=== PATIENT | female | born 1945 ===

== ENCOUNTER 2022-06-02 11:19 | Inpatient (IN) | payer MEDICARE ==
[~2022-06-02] VITALS: Ht 160 cm; Wt 59.5 kg
[2022-06-02] MEDS ORDERED: SODIUM CHLORIDE 0.9% 100 ML ONE (11:35)
[2022-06-02] MEDS ORDERED: IOHEXOL 350 MG/ML 100 ML VIAL ONE (11:35)
[2022-06-02 11:54] LABS: BASOPHILS % (AUTO) 0.8 % (0.0-2.0); HEMATOCRIT 36.9 % (36-46); HEMOGLOBIN 12.6 g/dL (12.0-16.0); LYMPHOCYTES # (AUTO) 3.4 K/uL (1.0-4.8); LYMPHOCYTES % (AUTO) 30.7 % (22.0-44.0); MEAN CORPUSCULAR HEMOGLOBIN 30.9 pg (26.0-34.0); MEAN CORPUSCULAR HGB CONC 34.2 G/dL (31.0-37.0); MEAN CORPUSCULAR VOLUME 90 fL (80-100); MONOCYTES # (AUTO) 0.8 K/uL (0.1-1.0); MONOCYTES % (AUTO) 7.4 % (2.0-9.0); NEUTROPHILS # (AUTO) 6.6 K/uL (1.8-7.7); NEUTROPHILS % (AUTO) 60.1 % (40.0-70.0); PLATELET COUNT (AUTO) 422 K/uL (150-450); RED BLOOD CELL COUNT(AUTO) 4.08 MIL/uL (4.00-5.20); RED CELL DISTRIBUTION WIDTH 14.3 % (11.5-14.5)
[2022-06-02 12:05] LABS: ANION GAP 7 mmol/L (8-16); CALCIUM, TOTAL 9.5 mg/dL (8.8-10.5); CARBON DIOXIDE 29 mmol/L (22-29); CHLORIDE 103 mmol/L (98-107); GLOMERULAR FILTR. RATE CALC > 60 mL/min (>60); GLUCOSE,RANDOM 111 mg/dL (70-110); POTASSIUM 3.9 mmol/L (3.5-5.1); SODIUM SERUM 139 mmol/L (136-145); UREA NITROGEN, BLOOD 14 mg/dL (7-18)
[2022-06-02 12:11] LABS: ALANINE AMINOTRANSFERASE 37 U/L (12-78); ALBUMIN 2.9 g/dL (3.4-5.0); ALKALINE PHOSPHATASE 75 U/L (46-116); ASPARTATE AMINOTRANSFERASE 33 U/L (15-37); BILIRUBIN,TOTAL 0.5 mg/dL (0.1-1.0); TOTAL PROTEIN, SERUM 7.2 g/dL (6.4-8.2)
[2022-06-02 12:13] LABS: INR 1.1 (0.9-1.1); PROTHROMBIN TIME 11.5 SEC (9.4-11.6)
[2022-06-02] MEDS ORDERED: MEMA10TA11 PO (12:21)
[2022-06-02] MEDS ORDERED: PRAV20TA4 PO (12:21)
[2022-06-02] MEDS ORDERED: VALS160T2 PO (12:21)
[2022-06-02] MEDS ORDERED: LEVO100 PO (12:21)
[2022-06-02] MEDS ORDERED: MELA5TAB40 PO (12:21)
[2022-06-02] MEDS ORDERED: AMLO-257 PO (12:21)
[2022-06-02] MEDS ORDERED: ESCI-8 PO (12:21)
[2022-06-02] MEDS ORDERED: METF-81 PO (12:21)
[2022-06-02 13:01] LABS: COVID AG,FIA SOURCE NASAL SWAB
[2022-06-02 13:16] LABS: AMPHET/METH SCREEN,URINE NEGATIVE (NEGATIVE); BARBITURATE SCREEN, URINE NEGATIVE (NEGATIVE); BENZODIAZEPINES SCREEN,URINE NEGATIVE (NEGATIVE); CANNABINOID SCREEN,URINE NEGATIVE (NEGATIVE); COCAINE SCREEN,URINE NEGATIVE (NEGATIVE); METHADONE SCREEN, URINE NEGATIVE (NEGATIVE); OPIATE SCREEN,URINE NEGATIVE (NEGATIVE)
[2022-06-02 13:20] LABS: APPEARANCE,URINE HAZY (CLEAR); BILIRUBIN,URINE NEGATIVE (NEGATIVE); GLUCOSE, URINE (UA) NEGATIVE (NEGATIVE); KETONES,URINE NEGATIVE (NEGATIVE); LEUKOCYTE ESTERASE ,URINE LARGE (NEGATIVE); NITRATE,URINE POSITIVE (NEGATIVE); OCCULT BLOOD,URINE TRACE (NEGATIVE); PROTEIN,URINE TRACE mg/dL (NEGATIVE); SPECIFIC GRAVITIY, URINE 1.014 (1.003-1.030); UROBILINOGEN,URINE <=1.0 mg/dL (<=1.0)
[2022-06-02 13:21] LABS: PHENCYCLIDINE SCREEN,URINE NEGATIVE (NEGATIVE)
[2022-06-02 13:28] LABS: RBC,URINE 0-2 /HPF (0-2); WBC,URINE 26-50 /HPF (0-5)
[2022-06-02 13:29] LABS: BACTERIA,URINE Many /HPF (None Seen)
[2022-06-02] MEDS ORDERED: CefTRIAXone 1 GM/DEXTROSE 50 ML IV ONE (14:00)
[2022-06-02] MEDS ORDERED: HALO5TAB2 PO (14:34)
[2022-06-02] MEDS ORDERED: AMAN100C15 PO (14:34)
[2022-06-02] MEDS ORDERED: ACETAMINOPHEN 325 MG TABLET PO PRN (17:45)
[2022-06-02] MEDS ORDERED: IPRATROPIUM BROMIDE 0.5 MG/2.5 ML NEB SOLUTION NEB PRN (17:45)
[2022-06-02] MEDS ORDERED: BISACODYL 10 MG RECTAL RECTAL SUPPOSITORY PR PRN (17:45)
[2022-06-02] MEDS ORDERED: MORPHINE SULFATE 2 MG/ML SYRINGE IVP PRN (17:45)
[2022-06-02] MEDS ORDERED: ONDANSETRON HCL 4 MG/2 ML VIAL IVP PRN (17:45)
[2022-06-02] MEDS ORDERED: ZOLPIDEM TARTRATE 5 MG TABLET PO PRN (17:45)
[2022-06-02] MEDS ORDERED: HYDROCODONE/ACETAMINOPHEN 5-325 MG TABLET PO PRN (17:45)
[2022-06-02] MEDS ORDERED: ALBUTEROL SULFATE 2.5 MG/0.5 ML NEB SOLUTION NEB PRN (17:45)
[2022-06-02] MEDS ORDERED: MAGNESIUM HYDROXIDE SUSPENSION 30 ML UDCUP PO PRN (17:45)
[2022-06-02 20:00] VITALS: BP 133/72
[2022-06-02] MEDS: AMANTADINE HCL 100 MG CAPSULE PO SCH (21:00)
[2022-06-02] MEDS: PRAVASTATIN SODIUM 20 MG TABLET PO SCH (21:00)
[2022-06-02] MEDS: MEMANTINE HCL 10 MG TABLET PO SCH (21:00)
[2022-06-02] MEDS: DOCUSATE SODIUM 100 MG CAPSULE PO SCH (21:00)
[2022-06-02] MEDS: MELATONIN 5 MG TABLET PO SCH (21:00)
[2022-06-03 00:15] VITALS: BP 135/87
[2022-06-03 04:16] VITALS: BP 140/81
[2022-06-03] MEDS: LEVOTHYROXINE SODIUM 100 MCG TABLET PO SCH (06:25)
[2022-06-03 07:05] LABS: BASOPHILS % (AUTO) 0.8 % (0.0-2.0); EOSINOPHILS % (AUTO) 1.7 % (1.0-6.0); HEMATOCRIT 39.9 % (36-46); HEMOGLOBIN 13.8 g/dL (12.0-16.0); LYMPHOCYTES % (AUTO) 25.1 % (22.0-44.0); MEAN CORPUSCULAR HEMOGLOBIN 30.9 pg (26.0-34.0); MEAN CORPUSCULAR HGB CONC 34.5 G/dL (31.0-37.0); MEAN CORPUSCULAR VOLUME 90 fL (80-100); MONOCYTES # (AUTO) 0.8 K/uL (0.1-1.0); MONOCYTES % (AUTO) 6.9 % (2.0-9.0); NEUTROPHILS # (AUTO) 7.8 K/uL (1.8-7.7); NEUTROPHILS % (AUTO) 65.5 % (40.0-70.0); PLATELET COUNT (AUTO) 413 K/uL (150-450); RED BLOOD CELL COUNT(AUTO) 4.45 MIL/uL (4.00-5.20); RED CELL DISTRIBUTION WIDTH 14.9 % (11.5-14.5)
[2022-06-03 07:37] LABS: ALANINE AMINOTRANSFERASE 33 U/L (12-78); ALBUMIN 2.9 g/dL (3.4-5.0); ALKALINE PHOSPHATASE 78 U/L (46-116); ANION GAP 8 mmol/L (8-16); ASPARTATE AMINOTRANSFERASE 30 U/L (15-37); BILIRUBIN,TOTAL 0.3 mg/dL (0.1-1.0); CALCIUM, TOTAL 9.6 mg/dL (8.8-10.5); CARBON DIOXIDE 27 mmol/L (22-29); CHLORIDE 101 mmol/L (98-107); CHOL/HDL RATIO 4.1 (3.9-5.7); CHOLESTEROL 173 mg/dL (131-200); CREATININE 0.66 mg/dL (0.60-1.30); GLUCOSE,RANDOM 115 mg/dL (70-110); HDL CHOLESTEROL 42 mg/dL (40-60); LDL CHOL (CALC.) 104 mg/dL (0-130); POTASSIUM 3.6 mmol/L (3.5-5.1); SODIUM SERUM 136 mmol/L (136-145); TOTAL PROTEIN, SERUM 7.5 g/dL (6.4-8.2); TRIGLYCERIDES 137 mg/dL (15-150); UREA NITROGEN, BLOOD 15 mg/dL (7-18)
[2022-06-03 07:41] LABS: GLOMERULAR FILTR. RATE CALC > 60 mL/min (>60)
[2022-06-03] MEDS: HEPARIN SODIUM,PORCINE 5,000 UNITS/ML VIAL SQ SCH ×3 (08:00→15:54)
[2022-06-03 08:01] VITALS: BP 132/90
[2022-06-03] MEDS: AMANTADINE HCL 100 MG CAPSULE PO SCH ×2 (09:00→22:43)
[2022-06-03] MEDS: VALSARTAN 160 MG TABLET PO SCH (10:15)
[2022-06-03] MEDS: ESCITALOPRAM OXALATE 10 MG TABLET PO SCH (10:16)
[2022-06-03] MEDS: PANTOPRAZOLE SODIUM 40 MG/VIAL IVP SCH (10:16)
[2022-06-03] MEDS: DOCUSATE SODIUM 100 MG CAPSULE PO SCH ×2 (10:16→21:37)
[2022-06-03] MEDS: AmLODIPine BESYLATE 5 MG TABLET PO SCH (10:16)
[2022-06-03] MEDS: MEMANTINE HCL 10 MG TABLET PO SCH ×2 (10:17→21:37)
[2022-06-03 11:06] VITALS: BP 111/67
[2022-06-03] MEDS ORDERED: SODIUM CHLORIDE 0.9% 500 ML IV ONE (14:20)
[2022-06-03] MEDS: CefTRIAXone 1 GM/DEXTROSE 50 ML IV SCH (14:27)
[2022-06-03 15:54] VITALS: BP 112/62
[2022-06-03] MEDS: MetFORMIN HCL 500 MG ER TABLET PO SCH (17:53)
[2022-06-03 20:08] VITALS: BP 118/66
[2022-06-03] MEDS: PRAVASTATIN SODIUM 20 MG TABLET PO SCH (21:37)
[2022-06-03] MEDS: MELATONIN 5 MG TABLET PO SCH (21:37)
[2022-06-04] VITALS (7 sets, daily range): BP systolic 107–128; BP diastolic 56–73
[2022-06-04] MEDS: HEPARIN SODIUM,PORCINE 5,000 UNITS/ML VIAL SQ SCH ×3 (00:05→16:42)
[2022-06-04] MEDS: LEVOTHYROXINE SODIUM 100 MCG TABLET PO SCH (06:47)
[2022-06-04 08:36] LABS: GLUCOMETER DEV NAME(LOC) 5N.1C; GLUCOSE,POINT OF CARE 133 MG/DL (70-110)
[2022-06-04] MEDS: DOCUSATE SODIUM 100 MG CAPSULE PO SCH ×2 (08:48→20:10)
[2022-06-04] MEDS: VALSARTAN 160 MG TABLET PO SCH (08:48)
[2022-06-04] MEDS: ESCITALOPRAM OXALATE 10 MG TABLET PO SCH (08:49)
[2022-06-04] MEDS: MEMANTINE HCL 10 MG TABLET PO SCH ×2 (08:49→20:11)
[2022-06-04] MEDS: AMANTADINE HCL 100 MG CAPSULE PO SCH ×2 (08:51→20:10)
[2022-06-04] MEDS: PANTOPRAZOLE SODIUM 40 MG/VIAL IVP SCH (08:52)
[2022-06-04] MEDS ORDERED: AMAN-24 PO (10:18)
[2022-06-04] MEDS ORDERED: HALO5TAB23 PO (10:18)
[2022-06-04] MEDS: AmLODIPine BESYLATE 5 MG TABLET PO SCH (12:18)
[2022-06-04] MEDS: CefTRIAXone 1 GM/DEXTROSE 50 ML IV SCH (13:36)
[2022-06-04] MEDS: MetFORMIN HCL 500 MG ER TABLET PO SCH (17:39)
[2022-06-04 18:01] LABS: GLUCOMETER DEV NAME(LOC) 5N.1C; GLUCOSE,POINT OF CARE 159 MG/DL (70-110)
[2022-06-04] MEDS: PRAVASTATIN SODIUM 20 MG TABLET PO SCH (20:10)
[2022-06-04] MEDS: MELATONIN 5 MG TABLET PO SCH (20:11)
[2022-06-05] VITALS (7 sets, daily range): BP systolic 99–113; BP diastolic 51–71
[2022-06-05] MEDS: HEPARIN SODIUM,PORCINE 5,000 UNITS/ML VIAL SQ SCH ×3 (00:58→17:50)
[2022-06-05] MEDS: LEVOTHYROXINE SODIUM 100 MCG TABLET PO SCH (06:43)
[2022-06-05] MEDS: MEMANTINE HCL 10 MG TABLET PO SCH ×2 (09:53→21:05)
[2022-06-05] MEDS: VALSARTAN 160 MG TABLET PO SCH (09:53)
[2022-06-05] MEDS: AmLODIPine BESYLATE 5 MG TABLET PO SCH (09:54)
[2022-06-05] MEDS: ESCITALOPRAM OXALATE 10 MG TABLET PO SCH (09:54)
[2022-06-05] MEDS: DOCUSATE SODIUM 100 MG CAPSULE PO SCH ×2 (09:54→21:05)
[2022-06-05] MEDS: PANTOPRAZOLE SODIUM 40 MG/VIAL IVP SCH (09:55)
[2022-06-05] MEDS: AMANTADINE HCL 100 MG CAPSULE PO SCH ×2 (10:06→21:05)
[2022-06-05 12:39] LABS: BASOPHILS % (AUTO) 0.6 % (0.0-2.0); EOSINOPHILS % (AUTO) 0.7 % (1.0-6.0); HEMATOCRIT 36.7 % (36-46); HEMOGLOBIN 12.6 g/dL (12.0-16.0); LYMPHOCYTES # (AUTO) 3.7 K/uL (1.0-4.8); LYMPHOCYTES % (AUTO) 36.9 % (22.0-44.0); MEAN CORPUSCULAR HEMOGLOBIN 31.5 pg (26.0-34.0); MEAN CORPUSCULAR HGB CONC 34.2 G/dL (31.0-37.0); MEAN CORPUSCULAR VOLUME 92 fL (80-100); MONOCYTES # (AUTO) 0.7 K/uL (0.1-1.0); MONOCYTES % (AUTO) 6.7 % (2.0-9.0); NEUTROPHILS # (AUTO) 5.5 K/uL (1.8-7.7); NEUTROPHILS % (AUTO) 55.1 % (40.0-70.0); PLATELET COUNT (AUTO) 385 K/uL (150-450); RED BLOOD CELL COUNT(AUTO) 3.99 MIL/uL (4.00-5.20); RED CELL DISTRIBUTION WIDTH 14.7 % (11.5-14.5)
[2022-06-05 13:03] LABS: ANION GAP 8 mmol/L (8-16); CALCIUM, TOTAL 9.4 mg/dL (8.8-10.5); CARBON DIOXIDE 27 mmol/L (22-29); CHLORIDE 101 mmol/L (98-107); CREATININE 0.82 mg/dL (0.60-1.30); GLUCOSE,RANDOM 113 mg/dL (70-110); SODIUM SERUM 136 mmol/L (136-145); UREA NITROGEN, BLOOD 14 mg/dL (7-18)
[2022-06-05 13:04] LABS: GLOMERULAR FILTR. RATE CALC > 60 mL/min (>60)
[2022-06-05 13:09] LABS: ALANINE AMINOTRANSFERASE 28 U/L (12-78); ALBUMIN 2.6 g/dL (3.4-5.0); ALKALINE PHOSPHATASE 69 U/L (46-116); ASPARTATE AMINOTRANSFERASE 23 U/L (15-37); BILIRUBIN,TOTAL 0.3 mg/dL (0.1-1.0); TOTAL PROTEIN, SERUM 6.7 g/dL (6.4-8.2)
[2022-06-05] MEDS ORDERED: SODIUM CHLORIDE 0.9% 500 ML IV ONE (14:38)
[2022-06-05] MEDS: CefTRIAXone 1 GM/DEXTROSE 50 ML IV SCH (14:39)
[2022-06-05 17:10] LABS: THYROID STIMULATING HORMONE 5.49 uIU/mL (0.36-3.74)
[2022-06-05] MEDS: MetFORMIN HCL 500 MG ER TABLET PO SCH (17:50)
[2022-06-05] MEDS: PRAVASTATIN SODIUM 20 MG TABLET PO SCH (21:05)
[2022-06-05] MEDS: MELATONIN 5 MG TABLET PO SCH (21:05)
[2022-06-06 03:45] VITALS: BP 93/56
[2022-06-06] MEDS: LEVOTHYROXINE SODIUM 100 MCG TABLET PO SCH (06:15)
[2022-06-06 07:59] VITALS: BP 112/55
[2022-06-06] MEDS: VALSARTAN 160 MG TABLET PO SCH (08:04)
[2022-06-06] MEDS: DOCUSATE SODIUM 100 MG CAPSULE PO SCH ×2 (08:04→20:26)
[2022-06-06] MEDS: ESCITALOPRAM OXALATE 10 MG TABLET PO SCH (08:05)
[2022-06-06] MEDS: MEMANTINE HCL 10 MG TABLET PO SCH ×2 (08:05→20:26)
[2022-06-06] MEDS: AmLODIPine BESYLATE 5 MG TABLET PO SCH (08:05)
[2022-06-06] MEDS: AMANTADINE HCL 100 MG CAPSULE PO SCH ×2 (08:05→20:26)
[2022-06-06] MEDS: HEPARIN SODIUM,PORCINE 5,000 UNITS/ML VIAL SQ SCH ×3 (08:06→17:00)
[2022-06-06] MEDS: PANTOPRAZOLE SODIUM 40 MG/VIAL IVP SCH (08:06)
[2022-06-06 11:46] VITALS: BP 98/50
[2022-06-06] MEDS: CefTRIAXone 1 GM/DEXTROSE 50 ML IV SCH (13:17)
[2022-06-06 15:43] VITALS: BP 108/68
[2022-06-06] MEDS: MetFORMIN HCL 500 MG ER TABLET PO SCH (17:00)
[2022-06-06 19:41] VITALS: BP 101/56
[2022-06-06] MEDS: PRAVASTATIN SODIUM 20 MG TABLET PO SCH (20:26)
[2022-06-06] MEDS: MELATONIN 5 MG TABLET PO SCH (20:26)
[2022-06-07 00:03] VITALS: BP 110/60
[2022-06-07] MEDS: HEPARIN SODIUM,PORCINE 5,000 UNITS/ML VIAL SQ SCH ×4 (00:31→23:14)
[2022-06-07 04:15] VITALS: BP 101/58
[2022-06-07] MEDS: LEVOTHYROXINE SODIUM 100 MCG TABLET PO SCH (05:54)
[2022-06-07 08:12] VITALS: BP 119/65
[2022-06-07] MEDS: VALSARTAN 160 MG TABLET PO SCH (08:58)
[2022-06-07] MEDS: PANTOPRAZOLE SODIUM 40 MG/VIAL IVP SCH (08:58)
[2022-06-07] MEDS: MEMANTINE HCL 10 MG TABLET PO SCH ×2 (08:59→19:51)
[2022-06-07] MEDS: AmLODIPine BESYLATE 5 MG TABLET PO SCH (08:59)
[2022-06-07] MEDS: AMANTADINE HCL 100 MG CAPSULE PO SCH ×2 (08:59→19:51)
[2022-06-07] MEDS: ESCITALOPRAM OXALATE 10 MG TABLET PO SCH (08:59)
[2022-06-07] MEDS: DOCUSATE SODIUM 100 MG CAPSULE PO SCH ×2 (08:59→19:52)
[2022-06-07 10:49] VITALS: BP 109/62
[2022-06-07] MEDS: CefTRIAXone 1 GM/DEXTROSE 50 ML IV SCH (14:54)
[2022-06-07 15:34] VITALS: BP 115/68
[2022-06-07] MEDS: MetFORMIN HCL 500 MG ER TABLET PO SCH (18:10)
[2022-06-07] MEDS: PRAVASTATIN SODIUM 20 MG TABLET PO SCH (19:51)
[2022-06-07] MEDS: MELATONIN 5 MG TABLET PO SCH (19:51)
[2022-06-07 20:18] VITALS: BP 129/76
[2022-06-08 00:44] VITALS: BP 128/78
[2022-06-08 04:12] VITALS: BP 126/76
[2022-06-08] MEDS: LEVOTHYROXINE SODIUM 100 MCG TABLET PO SCH (05:29)
[2022-06-08 07:35] VITALS: BP 123/69
[2022-06-08] MEDS: DOCUSATE SODIUM 100 MG CAPSULE PO SCH (08:41)
[2022-06-08] MEDS: PANTOPRAZOLE SODIUM 40 MG/VIAL IVP SCH (08:41)
[2022-06-08] MEDS: AmLODIPine BESYLATE 5 MG TABLET PO SCH (08:42)
[2022-06-08] MEDS: HEPARIN SODIUM,PORCINE 5,000 UNITS/ML VIAL SQ SCH ×2 (08:42→17:18)
[2022-06-08] MEDS: ESCITALOPRAM OXALATE 10 MG TABLET PO SCH (08:42)
[2022-06-08] MEDS: VALSARTAN 160 MG TABLET PO SCH (08:42)
[2022-06-08] MEDS: MEMANTINE HCL 10 MG TABLET PO SCH (08:42)
[2022-06-08] MEDS: AMANTADINE HCL 100 MG CAPSULE PO SCH (08:42)
[2022-06-08 11:45] VITALS: BP 126/72
[2022-06-08] MEDS: CefTRIAXone 1 GM/DEXTROSE 50 ML IV SCH (15:39)
[2022-06-08 16:15] VITALS: BP 127/81
[2022-06-08] MEDS: MetFORMIN HCL 500 MG ER TABLET PO SCH (17:18)
== END 2022-06-08 17:18 | disposition home health service (06) | DRG 71 ==
LOC: EMS 11:19 → EDBD 11:19 → 5S 17:43
PROVIDERS: ADMIT Hospitalist; ATTEND Hospitalist
DX: G93.41 Metabolic encephalopathy (principal); N39.0 Urinary tract infection, site not specified; I10 Essential (primary) hypertension; E11.9 Type 2 diabetes mellitus without complications; E03.9 Hypothyroidism, unspecified; F03.90 Unspecified dementia, unspecified severity, without behavioral disturbance, psychotic disturbance, mood disturbance, and anxiety; E78.00 Pure hypercholesterolemia, unspecified; Z20.822 Contact with and (suspected) exposure to COVID-19; Z79.899 Other long term (current) drug therapy; Z88.8 Allergy status to other drugs, medicaments and biological substances; Z79.84 Long term (current) use of oral hypoglycemic drugs
CPT/HCPCS: 70496; 70498; 71045; 80053; 80061; 81001; 82948; 82962; 84443; 84484; 85025; 85610; 85730; 86850; 86900; 86901; 87081; 87086; 87186; 92610; 93005; 97163; 97530; 99291; C9113; J0696; J1644; J7040; J7050; Q9967; 36415-L1; 36415-TC; 70450; 70450-TC